=== PATIENT | male | born 1930 | race Caucasian/White ===

== ENCOUNTER 2016-06-01 08:40 | Emergency (ER) | payer MEDICARE, OTHER ==
[2016-06-01 09:01] VITALS: BP 145/83
--- NOTE | 2016-06-01 09:40 | CT ---
Head wo Cont HISTORY: Dysarthria. Aphasia FINDINGS:There is central and cortical cerebral atrophy consistent with age. There is no hemorrhage, mass effect, or edema. Low attenuation is demonstrated throughout the deep periventricular white ma tter. 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 The brainstem and posterior fossa are unremarkable. The orbital structures demonstrate no abnorm alities. The sinuses demonstrate normal aeration. IMPRESSION: Age-related involutional changes. No acute intracranial changes are demonstrated.
[2016-06-01] MEDS ORDERED: Aspirin 81 MG Tab.Chew PO ONE (09:45)
--- NOTE | 2016-06-01 09:48 | EDM.PDOC ---
[id number] UNABLE TO SPEAK Time Seen by Provider: 06/01/16 09:05 Source: Reports: Patient, Family History Limitations: Reports: No limitations - History of Present Illness INITIAL COMMENTS - FREE TEXT/NARRATIVE: 86-year-old male without previous history of CVA presents with 4 hours or more of intermittent dysphasia. It is expressive in nature, he has no other symptoms. It began after he woke up this morning and he tried to talk to his dog he realized he was having difficulty speaking. He improved but 2-1/2 hours later his noticed him having symptoms so she brought him in. On arrival to the emergency room he was speaking fluently without symptoms, but after having his CT scan without contrast he was unable to say his name. At that point, after his CT was read negative phone consultation with neurology was done an urgent transfer was arranged. He was given 4 baby aspirin chewables. Quality (Neuro Complaint): Reports: altered speech. Denies: numbness, tingling , weakness Severity: moderate Associated symptoms: Reports: denies other symptoms - Related Data Allergies/ADRs: Allergies Allergy/AdvReac Type Severity Reaction Status Date / Time atorvastatin calcium Allergy Confusion Verified 07/30/14 07:22 [From Lipitor] Penicillins Allergy Rash Verified 07/30/14 07:22 horse serum Allergy Muscle Uncoded 07/30/14 07:22 Weakness Home Meds: Home Meds Dorzolamide HCl 1 drop EYEBOTH DAILY 09/11/13 [History] Fluticasone Propionate 1 spray NASBOTH DAILY 09/11/13 [History] Pantoprazole [ProTONIX] 40 mg PO DAILY 09/11/13 [History] Simvastatin 40 mg PO BEDTIME 09/11/13 [History] Travoprost [Travatan Z 0.004% Ophth Soln] 1 drop EYEBOTH DAILY 09/11/13 [History ] Lutein 20 mg PO DAILY 07/28/14 [History] Multivitamin with Minerals [Multiple Vitamin] 1 tab PO DAILY 07/28/14 [History] Timolol [Betimol 0.5% Ophth Soln] 1 drop EYEBOTH DAILY 07/28/14 [History] Past Medical History HEENT History: Reports: Glaucoma, Impaired vision, Macular degeneration, Other ( see below) Other HEENT History: deviated septum Respiratory History: Reports: Other (see below) Other Respiratory History: PE Gastrointestinal History: Reports: Diverticulosis, GERD, Other (see below) Other Gastrointestinal History: peptic ulcer disease Genitourinary History: Reports: Other (see below) Other Genitourinary History: balanoposthitis Musculoskeletal History: Reports: Arthritis Oncologic (Cancer) History: Reports: Prostate - Infectious Disease History Infectious Disease History: Reports: Chicken pox, Measles, Mumps - Past Surgical History GI Surgical History: Reports: Cholecystectomy, Hernia repair/other Other GI Surgeries/Procedures: SIGMOID RESECTION Social & Family History - Tobacco Use Smoking Status *Q: Never Smoker Second Hand Smoke Exposure: No - Caffeine Use Caffeine Use: Reports: Coffee, Tea - Alcohol Use Days Per Week of Alcohol Use: 6 Number of Drinks Per Day: 3 Total Drinks Per Week: 18 - Recreational Drug Use Recreational Drug Use: No ED ROS GENERAL - Review of Systems Review Of Systems: See Below Constitutional: Denies: fever, chills Respiratory: Denies: Shortness of Breath Cardiovascular: Denies: Chest pain, Palpitations GI/Abdominal: Denies: Abdominal pain, Nausea, Vomiting Neurological: Denies: Headache Psychiatric: Reports: No symptoms ED EXAM, NEURO - Physical Exam Exam: See Below Exam Limited By: No limitations General Appearance: alert, no apparent distress, other (Initially when I saw the patient he was speaking fluently) Eye Exam: bilateral eye: EOMI Neck: No: carotid bruit Respiratory/Chest: no respiratory distress, lungs clear Cardiovascular: regular rate, rhythm, extra beats (Patient had occasional ectopic beats) GI/Abdominal: non tender Neurological: alert, normal mood/affect, no motor/sensory deficits Extremities: other (Symmetric strength of his upper and lower extremities). No : pedal edema Course - Vital Signs Last Recorded V/S: Last Vital Signs Temp 95.7 F 06/01/16 08:53 Pulse 68 06/01/16 08:53 Resp 15 06/01/16 08:53 BP 145/83 H 06/01/16 08:53 Pulse Ox 99 06/01/16 08:53 - Orders/Labs/Meds Labs: Laboratory Tests 06/01/16 06/01/16 06/01/16 Range/Units 09:16 09:16 09:16 WBC 5.2 (4.5-11.0) K/uL RBC 4.64 (4.30-5.90) M/uL Hgb 13.5 (12.0-15.0) g/dL Hct 40.0 (40.0-54.0) % MCV 86 (80-98) fL MCH 29 (27-31) pg MCHC 34 (32-36) % Plt Count 281 (150-400) K/uL Neut % (Auto) 55 (36-66) % Lymph % (Auto) 33 (24-44) % [place] % (Auto) 9 H (2-6) % Eos % (Auto) 2 (2-4) % Baso % (Auto) 1 (0-1) % PT 10.1 (9.5-12.0) sec INR 0.95 (0.80-1.20) Sodium 136 L (140-148) mmol/L Potassium 5.0 (3.6-5.2) mmol/L Chloride 102 (100-108) mmol/L Carbon Dioxide 27 (21-32) mmol/L Anion Gap 12.0 (5.0-14.0) mmol/L BUN 14 (7-18) mg/dL Creatinine 1.0 (0.8-1.3) mg/dL Est Cr Clr Drug Dosing 54.01 mL/min Estimated GFR (MDRD) > 60 (>60) Glucose 95 (74-106) mg/dL Calcium 8.3 L (8.5-10.1) mg/dL Meds: Medications Discontinued Medications Generic Name Dose Route Start Last Admin Trade Name Freq PRN Reason Stop Dose Admin Aspirin 324 mg 06/01/16 09:45 06/01/16 09:54 Aspirin PO 06/01/16 09:46 324 mg ONETIME ONE Administration - Re-Assessments/Exams Free Text/Narrative Re-Assessment/Exam: 06/01/16 09:47 CBC and BMP along with PT PTT were obtained. Patient was sent back for a head CT without contrast which was read as normal, however on returning from the CT he was again very expressively aphasic. He was given 4 chewable baby aspirin and urgently transferred by air to [facility] for a neurologic evaluation. Departure - Departure Time of Disposition: 09:59 Disposition: DC/Tfer to Acute Hospital 02 Condition: fair Clinical Impression: Expressive aphasia Referrals: Markus Borrego MD [Primary Care Provider] - Forms: ED Department Discharge Care Plan Goals: Patient is urgently transferred by air to [place] for neurologic evaluation for possible acute CVA. Dr. Sandoval at [facility] was accepting physician.
== END 2016-06-01 09:59 ==
LOC: JP.ED 08:40
DX: F80.1 Expressive language disorder (principal); K21.9 Gastro-esophageal reflux disease without esophagitis; M19.90 Unspecified osteoarthritis, unspecified site; Z79.899 Other long term (current) drug therapy; Z88.0 Allergy status to penicillin; Z91.09 Other allergy status, other than to drugs and biological substances; Z90.49 Acquired absence of other specified parts of digestive tract
CPT/HCPCS: 36415; 70450; 80048; 85025; 85610; 99285; A9270; 99284

== ENCOUNTER 2018-09-12 07:01 | Day surgery (SDC) | payer MEDICARE, OTHER ==
[2018-09-12] MEDS ORDERED: Sodium Chloride 0.9% 10 ML Syringe FLUSH PRN (07:30)
[2018-09-12 08:51] VITALS: BP 143/76; PULSE 67
--- NOTE | 2018-09-12 11:45 | OR ---
DATE OF PROCEDURE: 09/12/2018 POSTOPERATIVE CARE: Postoperative care will be provided mainly at the [address] [place] [address] [facility] in conjunction with [facility]. PREOPERATIVE DIAGNOSIS: Cataract, left eye. POSTOPERATIVE DIAGNOSIS: Cataract, left eye. PROCEDURE: Phacoemulsification with intraocular lens placement, left eye. ANESTHESIA: Topical and intracameral. ESTIMATED BLOOD LOSS: Minimal. COMPLICATIONS: None. PATHOLOGY SPECIMENS: None. SURGICAL FINDINGS: None. INDICATION FOR PROCEDURE: The patient is an 88-year-old male with history of a visually significant cataract in the left eye, which interfered with activities of daily living. This consisted of a nuclear sclerosis cataract. Following careful discussion of the risks, benefits and alternatives to cataract extraction with intraocular lens placement including blindness and , the patient elected to proceed, and informed, written consent was obtained prior to the procedure. DESCRIPTION OF THE PROCEDURE: The patient was previously identified, and a beulah placed above the left eye. All sources, including the patient, indicated that the left eye was the correct eye. The patient was subsequently taken to the operating room where standard monitors were applied. The patient was then prepped and draped in the usual sterile fashion for ophthalmic surgery. Attention was first directed at the 12 o'clock position where a paracentesis port was fashioned. Shugar solution followed by Viscoat was instilled into the eye. Attention was then directed to the 8:30 position where a triplanar incision was made in a near-clear manner using a keratome. A continuous capsulorrhexis was then made using a combination of the cystotome and Utrata forceps. Hydrodissection was achieved using a balanced salt solution, and the lens rotated nicely. Phacoemulsification was then done using a modified [id number] technique without complication. Phaco time was 12.22 CDE. The remaining cortex was removed using the irrigation/aspiration handpiece. Provisc was then instilled into the eye. A Technis lens, model [id number], at 17.5 Diopters was then placed in the capsular bag using an Senat[place] injector. The remaining viscoelastic was removed using the irrigation/aspiration forceps. All wounds were then checked and found to be watertight. The lid speculum and drapes were removed. Maxitrol ointment was placed in the patient's left eye, and the eye was shielded. The patient tolerated the procedure well. The patient was instructed to follow up tomorrow. All needle and sponge counts were correct at the end of the procedure. There were no surgical findings. Rochelle Linares MD /[id number]
== END 2018-09-12 09:11 | disposition home or self-care (01) ==
LOC: JP.SDS 07:01
PROVIDERS: ATTEND Ophthalmology
DX: H25.12 Age-related nuclear cataract, left eye (principal); K21.9 Gastro-esophageal reflux disease without esophagitis; Z88.0 Allergy status to penicillin
CPT/HCPCS: 66984; V2632

== ENCOUNTER 2018-10-17 06:40 | Day surgery (SDC) | payer MEDICARE, OTHER ==
[2018-10-17] MEDS ORDERED: Sodium Chloride 0.9% 10 ML Syringe FLUSH PRN (07:00)
[2018-10-17 08:45] VITALS: BP 156/87; PULSE 65
--- NOTE | 2018-10-17 16:20 | OR ---
DATE OF PROCEDURE: 10/17/2018 SURGEON: Rochelle Linares MD POSTOPERATIVE CARE: Postoperative care will be provided mainly at the [address] [place] [address] [facility] in conjunction with [facility]. PREOPERATIVE DIAGNOSIS: Cataract, right eye. POSTOPERATIVE DIAGNOSIS: Cataract, right eye. PROCEDURE: Phacoemulsification with intraocular lens placement, right eye. ANESTHESIA: Topical and intracameral. ESTIMATED BLOOD LOSS: Minimal. COMPLICATIONS: None. PATHOLOGY SPECIMENS: None. SURGICAL FINDINGS: None. INDICATION FOR PROCEDURE: The patient is an 88-year-old male with history of a visually significant cataract in the right eye, which interfered with activities of daily living. This consisted of a nuclear sclerosis cataract. Following careful discussion of the risks, benefits and alternatives to cataract extraction with intraocular lens placement including blindness and , the patient elected to proceed, and informed, written consent was obtained prior to the procedure. DESCRIPTION OF THE PROCEDURE: The patient was previously identified, and a beulah placed above the right eye. All sources, including the patient, indicated that the right eye was the correct eye. The patient was subsequently taken to the operating room where standard monitors were applied. The patient was then prepped and draped in the usual sterile fashion for ophthalmic surgery. Attention was first directed at the 12 o'clock position where a paracentesis port was fashioned. Shugar solution followed by Viscoat was instilled into the eye. Attention was then directed to the 8:30 position where a triplanar incision was made in a near-clear manner using a keratome. A continuous capsulorrhexis was then made using a combination of the cystotome and Utrata forceps. Hydrodissection was achieved using a balanced salt solution, and the lens rotated nicely. Phacoemulsification was then done using a modified udrfnp-[id number]-[id number] technique without complication. Phaco time was 9.53 CDE. The remaining cortex was removed using the irrigation/aspiration handpiece. Provisc was then instilled into the eye. A Technis lens, model [id number], at 16.5 diopters was then placed in the capsular bag using an [place] injector. The remaining viscoelastic was removed using the irrigation/aspiration forceps. All wounds were then checked and found to be watertight. The lid speculum and drapes were removed. Maxitrol ointment was placed in the patient's right eye, and the eye was shielded. The patient tolerated the procedure well. The patient was instructed to follow up tomorrow. All needle and sponge counts were correct at the end of the procedure. Rochelle Linares MD /[id number]
== END 2018-10-17 08:50 | disposition home or self-care (01) ==
LOC: JP.SDS 06:40
PROVIDERS: ATTEND Ophthalmology
DX: H25.11 Age-related nuclear cataract, right eye (principal); E78.5 Hyperlipidemia, unspecified; K21.9 Gastro-esophageal reflux disease without esophagitis; C61 Malignant neoplasm of prostate
CPT/HCPCS: 66984; V2632

== ENCOUNTER 2019-03-31 12:55 | Emergency (ER) | payer MEDICARE, OTHER ==
--- NOTE | 2019-03-31 13:54 | EDM.PDOC ---
ED HPI GENERAL MEDICAL PROBLEM - General Chief Complaint: Neuro Symptoms/Deficits Stated Complaint: MAYVE A TIA?? Time Seen by Provider: 03/31/19 13:40 Source of Information: Reports: Patient, Old Records, RN History Limitations: Reports: No Limitations - History of Present Illness INITIAL COMMENTS - FREE TEXT/NARRATIVE: 89 yo male with a pHx of a TIA presents after about a 30 min episode of difficulty speaking that resolved before arrival. He had no other sx's with this. His TIA a couple yrs ago eventually resolved and didn't return until today. Is on Plavix and has not missed any doses. No SMITH or dizziness. Was sent to [facility] last time as his TIA sx's came and went several times but was fully gone by the time he got to [place] and they didn't find anything there. Sees Dr. Borrego locally. 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 (see below) (none) - Related Data Allergies Allergy/AdvReac Type Severity Reaction Status Date / Time atorvastatin calcium Allergy Confusion Verified 03/31/19 13:14 [From Lipitor] Penicillins Allergy Rash Verified 03/31/19 13:14 horse serum Allergy Muscle Uncoded 07/30/14 07:22 Weakness Home Meds: Home Meds Dorzolamide HCl 1 drop EYEBOTH BID 09/11/13 [History] Fluticasone Propionate 2 spray NASBOTH DAILY 09/11/13 [History] Pantoprazole [ProTONIX] 40 mg PO DAILY 09/11/13 [History] Simvastatin 40 mg PO BEDTIME 09/11/13 [History] Travoprost [Travatan Z 0.004% Ophth Soln] 1 drop EYEBOTH DAILY 09/11/13 [History ] Multivitamin with Minerals [Multiple Vitamin] 1 tab PO DAILY 07/28/14 [History] Timolol [Betimol 0.5% Ophth Soln] 1 drop EYEBOTH DAILY 06/23/15 [History] Clopidogrel Bisulfate [Clopidogrel] 75 mg PO DAILY 05/30/18 [History] Vit A/Vit C/Vit E/Zinc/Copper [Preservision Areds Softgel] 1 tab PO BID [History] Past Medical History HEENT History: Reports: Cataract, Glaucoma, Impaired Vision, Macular Degeneration, Other (See Below) Other HEENT History: wears glasses Cardiovascular History: Reports: Heart Murmur, High Cholesterol Respiratory History: Reports: Other (See Below) Other Respiratory History: PE Gastrointestinal History: Reports: Colon Polyp, Diverticulosis, GERD, PUD, Other (See Below) Other Gastrointestinal History: colon resection for diverticulitis Genitourinary History: Reports: Prostate Disorder, Other (See Below) Other Genitourinary History: balanoposthitis Musculoskeletal History: Reports: Arthritis, Other (See Below) Other Musculoskeletal History: R shoulder weakness, motion limited Neurological History: Reports: Cerebral Aneurysms, TIA Hematologic History: Reports: Blood Transfusion(s) Oncologic (Cancer) History: Reports: Prostate, Other (See Below) Other Oncologic History: pre-cancerous skin lesions removed Dermatologic History: Reports: None - Infectious Disease History Infectious Disease History: Reports: Chicken Pox, Measles, Mumps, Rubella, Other (See Below) Other Infectious Disease History: many various parasites while living in [place] for 30years after the war - Past Surgical History Head Surgeries/Procedures: Reports: None HEENT Surgical History: Reports: Adenoidectomy, Cataract Surgery, Tonsillectomy Cardiovascular Surgical History: Reports: None GI Surgical History: Reports: Cholecystectomy, Colonoscopy, Hernia Repair/Other , Polypectomy Male Surgical History: Reports: Prostate Biopsy Neurological Surgical History: Reports: None Musculoskeletal Surgical History: Reports: None, Other (See Below) Other Musculoskeletal Surgeries/Procedures:: screws right foot Oncologic Surgical History: Reports: Other (See Below) Other Oncologic Surgeries/Procedures: prostate Dermatological Surgical History: Reports: Skin Biopsy Social & Family History - Family History Family Medical History: Noncontributory - Tobacco Use Smoking Status *Q: Never Smoker - Caffeine Use Caffeine Use: Reports: Coffee, Tea - Alcohol Use Days Per Week of Alcohol Use: 7 Number of Drinks Per Day: 2 Total Drinks Per Week: 14 - Recreational Drug Use Recreational Drug Use: No ED ROS GENERAL - Review of Systems Review Of Systems: See Below Constitutional: Reports: No Symptoms HEENT: Reports: No Symptoms Respiratory: Reports: No Symptoms Cardiovascular: Reports: No Symptoms GI/Abdominal: Reports: No Symptoms : Reports: No Symptoms Musculoskeletal: Reports: No Symptoms Skin: Reports: No Symptoms Neurological: Reports: Trouble Speaking, Change in Speech. Denies: Dizziness, Headache, Numbness, Paresthesia, Seizure, Syncope, Difficulty Walking, Weakness Psychiatric: Reports: No Symptoms ED EXAM, NEURO - Physical Exam Exam: See Below Exam Limited By: No Limitations General Appearance: Alert, WD/WN, No Apparent Distress Eye Exam: Bilateral Eye: Normal Inspection Ears: Normal External Exam, Normal Canal, Hearing Grossly Normal, Normal TMs Nose: Normal Inspection, No Blood Throat/Mouth: Normal Inspection, Normal Lips, Normal Oropharynx, Normal Voice, No Airway Compromise Head Exam: Atraumatic, Normocephalic Neck: Normal Inspection, Non-Tender Respiratory/Chest: No Respiratory Distress, Lungs Clear, Normal Breath Sounds, No Accessory Muscle Use Cardiovascular: Regular Rate, Rhythm, No Edema GI/Abdominal: Normal Bowel Sounds, Soft, Non-Tender, No Distention Neurological: Alert, Normal Mood/Affect, Normal Dorsiflexion, CN II-XII Intact, No Motor/Sensory Deficits, Oriented x 3 DTR: 2+: Bicep (R), Bicep (L), Patella (R), Patella (L), Achilles (R), Achilles (L) Back Exam: Normal Inspection. No: CVA Tenderness (R), CVA Tenderness (L) Extremities: Normal Inspection, Normal Range of Motion, Non-Tender, No Pedal Edema Psychiatric: Normal Affect, Normal Mood Skin Exam: Warm, Dry, Intact, Normal Color, No Rash Course - Vital Signs Text/Narrative:: Discussed case with Dr. Henriquez @ [facility], [facility] neurology. Last Recorded V/S: Last Vital Signs Temp Pulse 63 03/31/19 14:35 Resp 23 H 03/31/19 14:35 BP 141/70 H 03/31/19 14:35 Pulse Ox 95 03/31/19 14:35 - Orders/Labs/Meds Orders: Active Orders 24 hr Category Date Time Status Cardiac Monitoring [RC] .As Directed Care 03/31/19 13:42 Active Labs: Laboratory Tests 03/31/19 03/31/19 Range/Units 13:51 13:51 WBC 6.4 (4.5-11.0) K/uL RBC 4.51 (4.30-5.90) M/uL Hgb 12.4 (12.0-15.0) g/dL Hct 38.7 L (40.0-54.0) % MCV 86 (80-98) fL MCH 28 (27-31) pg MCHC 32 (32-36) % Plt Count 255 (150-400) K/uL Sodium 137 L (140-148) mmol/L Potassium 4.2 (3.6-5.2) mmol/L Chloride 101 (100-108) mmol/L Carbon Dioxide 25 (21-32) mmol/L Anion Gap 15.2 H (5.0-14.0) mmol/L BUN 13 (7-18) mg/dL Creatinine 0.8 (0.8-1.3) mg/dL Est Cr Clr Drug Dosing 63.83 mL/min Estimated GFR (MDRD) > 60 (>60) Glucose 94 (74-106) mg/dL Calcium 8.7 (8.5-10.1) mg/dL Troponin I < 0.017 (0.000-0.056) ng/mL Meds: Medications Discontinued Medications Generic Name Dose Route Start Last Admin Trade Name Freq PRN Reason Stop Dose Admin Aspirin 324 mg 03/31/19 15:09 Aspirin PO 03/31/19 15:10 ONETIME ONE Departure - Departure Time of Disposition: 15:20 Disposition: Home, Self-Care 01 Condition: Fair Clinical Impression: TIA (transient ischemic attack) - Discharge Information *PRESCRIPTION DRUG MONITORING PROGRAM REVIEWED*: No *COPY OF PRESCRIPTION DRUG MONITORING REPORT IN PATIENT MEGHAN: No Referrals: Markus Borrego MD [Primary Care Provider] - Forms: ED Department Discharge Additional Instructions: Add a baby aspirin daily to your current medications, chew it up and take it with your largest meal and a dose of Maalox 30 ml. Continue your other medicines as currently. See your doctor to discuss the need for a neurology consultation. Return as needed. Sepsis Event Note - Evaluation Sepsis Screening Result: No Definite Risk - Focused Exam Vital Signs: Vital Signs Pulse Resp BP Pulse Ox 03/31/19 14:35 63 23 H 141/70 H 95 03/31/19 13:09 59 L 14 172/80 H 99 Date Exam was Performed: 03/31/19 Time Exam was Performed: 15:12 - My Orders Last 24 Hours: My Active Orders 03/31/19 13:42 Cardiac Monitoring [RC] .As Directed - Assessment/Plan Last 24 Hours: My Active Orders 03/31/19 13:42 Cardiac Monitoring [RC] .As Directed
[2019-03-31 14:37] VITALS: BP 141/70; PULSE 63
[2019-03-31] MEDS ORDERED: Aspirin 81 MG Tab.Chew PO ONE (15:09)
== END 2019-03-31 15:31 | disposition home or self-care (01) ==
LOC: JP.ED 12:55
DX: G45.9 Transient cerebral ischemic attack, unspecified (principal); Z79.899 Other long term (current) drug therapy; Z88.0 Allergy status to penicillin; Z88.8 Allergy status to other drugs, medicaments and biological substances
CPT/HCPCS: 36415; 80048; 84484; 85027; 99283; 99285; A9270